=== PATIENT | female | born 1950 | race Caucasian/White ===

== ENCOUNTER → 2017-07-04 09:47 | Outpatient (CLI) | payer MEDICARE, BC, SELFPAY ==
--- NOTE | 2017-07-04 | DI.US.S_ITS ---
ULTRASOUND OF RIGHT BREAST: 07/04/2017 CLINICAL: Patient returns for a 6 month follow up of the right breast. Comparison is made to exams dated: 07/04/2017 mammogram, 12/20/2016 ultrasound, 12/16/2016 mammogram, and 12/14/2016 mammogram - [facility]. Color flow ultrasound of the right breast was performed. Rodriguez scale images of the real-time examination were reviewed. Prior mammographic finding is no longer seen right breast. IMPRESSION: NEGATIVE There is no sonographic evidence of malignancy. A 1 year screening mammogram is recommended. This exam was interpreted at Station ID: [id number]. Electronically Signed By: Zac calderon/heaven:07/04/2017 12:40:29 letter sent: Normal Exam Ultrasound BI-RADS: 1 Negative
--- NOTE | 2017-07-04 | DI.MG.S_ITS ---
UNILATERAL RIGHT DIGITAL DIAGNOSTIC MAMMOGRAM 3D/2D: 07/04/2017 CLINICAL: Patient returns for a 6 month follow up of the right breast. Personal history of breast cancer. Family history of breast cancer. Comparison is made to exams dated: 12/16/2016 mammogram, 12/14/2016 mammogram, and 07/01/2015 mammogram - Located [facility]. There are scattered fibroglandular elements in the right breast. Prior mammographic finding is no longer seen in the right breast. No significant masses, calcifications, or other findings are seen in the breast. IMPRESSION: INCOMPLETE: NEEDS ADDITIONAL IMAGING EVALUATION Questioned right breast finding has resolved. Recommend confirmation with ultrasound. This exam was interpreted at Station ID: [id number]. NOTE: For mammograms, a report in lay terms will be sent to the patient. Approximately 15% of breast malignancies will not be visualized mammographically. In the management of a palpable breast mass, a negative mammogram must not discourage biopsy of a clinically suspicious lesion. Electronically Signed By: Zac Pink M.D. cj/:07/04/2017 12:39:56 ACR BI-RADS Category 0: Incomplete [id number]
== END ==
PROVIDERS: PCP Family Medicine; Visit Provider Family Medicine
DX: R92.8 Other abnormal and inconclusive findings on diagnostic imaging of breast (principal); Z85.3 Personal history of malignant neoplasm of breast
CPT/HCPCS: 76642; 77065; G0279

== ENCOUNTER → 2018-04-12 10:46 | Outpatient (CLI) | payer MEDICARE, BC, SELFPAY ==
--- NOTE | 2018-04-12 | DI.US.S_ITS ---
PROCEDURE: US THYROID INDICATIONS: THYROID HYPERTROPHY TECHNIQUE: Real-time scanning was performed of the thyroid gland, with image documentation. COMPARISON: None. FINDINGS: Right: Thyroid lobe measures 2.3 x 2.9 x 4.8 cm, and there is no normal thyroid tissue seen bilaterally. There is a right-sided middle third nodule measuring up to 2.2 x 2.9 x 3.7 cm and appears solid, hypoechoic, smoothly marginated and free of internal calcifications. A second right mid medial thyroid nodule measures 5 x 6 x 10 mm, solid, hypoechoic, smooth, and without internal calcifications. The glandular echotexture is heterogeneous and has an appearance suggestive of superimposed prior thyroiditis. Left: Thyroid lobe measures 1.7 x 1.0 x 4.5 cm. as was seen on the right there is no normal appearing thyroid tissue bilaterally. The left inferior thyroid lobe contains a 5 x 5 x 11 mm solid nodule is hypoechoic smoothly marginated and free of internal calcifications. More superiorly within the left thyroid lobe there is a 4 x 7 x 7 mm solid hypoechoic and smoothly marginated nodule. Isthmus: 3 mm thick. Lymph nodes: No regional lymphadenopathy. IMPRESSION: The thyroid parenchyma bilaterally shows heterogeneity throughout in a pattern suggestive of prior thyroiditis and scarring. There is a dominant right thyroid nodule measuring up to 2.2 x 2.9 x 3.7 cm on the right there is good be easily and safely biopsied utilizing cytology technique if clinically desired. Elsewhere the thyroid nodules are appreciably smaller, likely benign, and could be followed by sequential ultrasound if clinically desired. Dictated by: Calvin Huerta M.D. on 04/12/2018 at 17:21 Approved by: Calvin Huerta M.D. on 04/12/2018 at 17:25
== END ==
PROVIDERS: PCP Family Medicine; Visit Provider Otolaryngology
DX: E04.9 Nontoxic goiter, unspecified (principal)
CPT/HCPCS: 76536

== ENCOUNTER → 2018-05-25 13:04 | Outpatient (CLI) | payer MEDICARE, BC, SELFPAY ==
--- NOTE | 2018-05-25 | DI.MG.S_ITS ---
BILATERAL DIGITAL SCREENING MAMMOGRAM 3D/2D WITH CAD POST LUMPECTOMY: 05/25/2018 CLINICAL: Routine screening. Personal history of left breast cancer. Family history of breast cancer. Comparison is made to exams dated: 12/14/2016 mammogram, 07/01/2015 mammogram, and 03/06/2014 mammogram - [facility]. There are scattered fibroglandular elements in both breasts. Current study was also evaluated with a Computer Aided Detection (CAD) system. There are benign post operative findings in both breasts. There also are benign calcifications in the left breast. No significant masses, calcifications, or other findings are seen in either breast. There has been no significant interval change. IMPRESSION: There is no mammographic evidence of malignancy. A 1 year screening mammogram is recommended. This exam was interpreted at Station ID: [id number]. NOTE: For mammograms, a report in lay terms will be sent to the patient. Approximately 15% of breast malignancies will not be visualized mammographically. In the management of a palpable breast mass, a negative mammogram must not discourage biopsy of a clinically suspicious lesion. Electronically Signed By: Quinn chen/heaven:05/25/2018 14:18:58 letter sent: Normal Exam ACR BI-RADS Category 2: Benign Finding(s) 3342F
== END ==
PROVIDERS: PCP Family Medicine; Visit Provider Family Medicine
DX: Z12.31 Encounter for screening mammogram for malignant neoplasm of breast (principal); Z85.3 Personal history of malignant neoplasm of breast; Z80.3 Family history of malignant neoplasm of breast
CPT/HCPCS: 77063; 77067

== ENCOUNTER → 2018-09-19 12:10 | Outpatient (CLI) | payer MEDICARE, BC, SELFPAY ==
--- NOTE | 2018-09-19 | DI.US.S_ITS ---
PROCEDURE: US THYROID INDICATIONS: Nontoxic multinodular goiter TECHNIQUE: Real-time scanning was performed of the thyroid gland, with image documentation. COMPARISON: [facility], US, US THYROID, 04/12/2018, 11:10. FINDINGS: Thyroid gland is enlarged and demonstrates diffusely heterogeneous echotexture. Right: Thyroid lobe measures 5.0 x 3.1 x 2.4 cm. Left: Thyroid lobe measures 4.6 x 1.8 x 1.6 cm. Isthmus: 4 mm thick. Nodule number: 1 Location: Mid right thyroid lobe Size: 3.9 x 2.8 x 2.2 cm, unchanged since the last time. Composition: Solid Echogenicity: Hypoechoic Shape: wider than tall. Margins: The most Echogenic foci: No Total points: 4 ACR TI-RADS category: 4 Nodule number: 2 Location: Medial upper right thyroid lobe Size: 1.0 x 0.5 x 0.5cm, unchanged since the last exam Composition: Solid Echogenicity: Hypoechoic Shape: wider than tall. Margins: Smooth Echogenic foci: None Total points: 4 ACR TI-RADS category: 4 Nodule number: 3 Location: Inferior right thyroid lobe Size: 1.0 x 0.9 x 0.5 cm. Composition: Solid Echogenicity: Hypoechoic Shape: wider than tall. Margins: Smooth Echogenic foci: None Total points: 4 ACR TI-RADS category: 4 Nodule number: 4 Location: Mid lateral thyroid lobe Size: 1.0 x 0.7 x 0.5 cm, cm, unchanged in size since last exam. Composition: Solid Echogenicity: Hypoechoic Shape: wider than tall. Margins: Smooth Echogenic foci: None Total points: 4 ACR TI-RADS category: 4 Nodule number: 5 Location: Mid medial left thyroid lobe Size: 0.7 x 0.6 x 0.4 cm, unchanged in size since last exam. Composition: Solid Echogenicity: Hypoechoic Shape: wider than tall. Margins: Smooth Echogenic foci: None Total points: 4 ACR TI-RADS category: 4 IMPRESSION: 1. Enlarged, heterogeneous echotexture of thyroid gland compatible with chronic thyroiditis. 2. Multiple thyroid nodules as described. Biopsy should be considered for nodule #1. Other nodules can be followed sonographically. Please see enclosed followup recommendation. ACR TI-RADS definitions and recommendations: TI-RADS 1 (benign): 0 points. FNA not needed. TI-RADS 2 (not suspicious): 2 points. FNA not needed. TI-RADS 3 (mildly suspicious): 3 points. * FNA if 2.5 cm or larger, follow up if 1.5 cm or larger (at 1, 3, and 5 years). TI-RADS 4 (moderately suspicious): 4-6 points. * FNA if 1.5 cm or larger, follow up if 1 cm or larger (at 1, 2, 3, and 5 years). TI-RADS 5 (highly suspicious): 7 points or more. * FNA if 1 cm or larger, follow up if 0.5 cm or larger (every year for 5 years). Dictated by: Elida Calderon M.D. on 09/19/2018 at 14:15 Approved by: Elida Calderon M.D. on 09/19/2018 at 14:26
== END ==
PROVIDERS: PCP Family Medicine; Visit Provider Otolaryngology
DX: R59.9 Enlarged lymph nodes, unspecified (principal); E04.2 Nontoxic multinodular goiter; D49.7 Neoplasm of unspecified behavior of endocrine glands and other parts of nervous system
CPT/HCPCS: 76536

== ENCOUNTER → 2018-11-09 09:47 | Outpatient (CLI) | payer MEDICARE, BC, SELFPAY ==
--- NOTE | 2018-11-09 | DI.US.S_ITS ---
PROCEDURE: US FINE NEEDLE ASPIRATION INDICATIONS: RIGHT LOBE MASS TECHNIQUE: The indications, alternatives, benefits, risks, and complications of the procedure were explained to the patient. Written informed consent was obtained and placed in the chart. The thyroid region was examined sonographically and a site was chosen for ultrasound guided percutaneous sampling. The skin was prepared and draped in the usual fashion, and anesthetized with 1% lidocaine infiltrated from the skin down to the thyroid gland. Multiple passes were then performed, with the needles given to a technical service representative of the pathology department for appropriate handling. A bandage was applied to the area of access at completion of the study. COMPARISON: [facility], US, US THYROID, 09/19/2018, 12:33. FINDINGS: Location(s) of lesion(s) sampled: Right thyroid Hollister: 25 gauge hypodermic needles. Number of passes: 6 samples obtained Medications: 1% lidocaine for local anaesthesia. Complications: None. IMPRESSION: Successful ultrasound-guided thyroid nodule fine needle aspiration, with cytology results pending. Please see chart below for management recommendations based on cytology results. [facility] ReportingRecommendationsNon-diagnostic* Repeat US-guided FNA, with on-site cytology evaluation if possible. * Repeated non-diagnostic nodules without high suspicion US features: close observation vs surgical consult. * Consider surgery if nodule has high suspicion US features, grows >20% in 2 dimensions on followup, or patient has clinical risk factors for malignancy. Benign* If nodule has high suspicion US features: repeat US and FNA within 12 months. * If nodule has low to intermediate suspicion US features: repeat US at 12-24 months. If nodule grows (20% increase in at least 2 dimensions, with minimal increase of 2 mm or >50% change in volume), or development of new suspicious US features, then repeat FNA or continue followup. * If nodule has very low suspicion US features: followup US at >24 months. Atypia of undetermined significance, follicular lesion of undetermined significanceRepeat FNA, molecular testing, followup US, or surgical consult.Follicular neoplasm, suspicious for follicular neoplasmSurgical consult; also consider molecular testing. Suspicious for malignancySurgical consult.MalignantSurgical consult. Dictated by: Chan Centeno M.D. on 11/09/2018 at 13:04 Approved by: Chan Centeno M.D. on 11/09/2018 at 13:05
--- NOTE | 2018-11-09 | PATH_ITS ---
Note [facility] Accession Number: [id number] TESTS RESULT FLAG UNITS REF RANGE LAB Clinician Provided Cytology Information No. of containers..01 ThinPrep Vial No. of containers..10 Previously Prepared Cytology Slide RIGHT THYROID NODULE DIAGNOSIS: 02 RIGHT THYROID NODULE INCONCLUSIVE. B[place]ESDA CATEGORY III. ATYPIA OF UNDETERMINED SIGNIFICANCE. SOME FOLLICULAR EPITHELIAL CELLS SHOW FOCAL CYTOLOGIC AND ARCHITECTURAL ATYPIA (MICROFOLLICLES). A REPEAT ASPIRATE AFTER AN APPROPRIATE INTERVAL OF OBSERVATION MIGHT BE HELPFUL, IF CLINICALLY INDICATED. Pathologist ICD10: 02 R89.6 THYROID ULTRA SOUND 04/12 SHOWING MULTINODULAR GOITER BUT LARGEST RIGHT MID POLE SOLID LESION 3.7 CM,SMOOTH MARGINS AND NO INTERNAL CALCIFICATION. 02 Nuvia Espinosa MD, Pathologist NPI- [id number] Eamon Skinner, Head Coach ([facility]) 01 30 CC, RED, CLEAR RECEIVED: 5 ALCOHOL FIXED AND 5 QUICK STAINED SLIDES WITH 1 RNA VIAL FOR FURTHER TESTING. /VDU 11/10/2018 0914 Local FLAG LEGEND: L-Low Normal,H-High Normal,LL-Alert Low,HH-Alert High <-Panic Low,>-Panic High,A-Abnormal,AA-Critical Abnormal Performed at: 01 =Z [facility] [address] [address], [place] [address] Santos Calhoun MD, [address] [facility] [address] [place] [phone] Adore Sanabria MD, Performed at: [address] [facility] [address], [place], [place] [id number] MD Santos Calhoun MD Phone: [phone]
== END ==
PROVIDERS: PCP Family Medicine; Visit Provider Otolaryngology
DX: E04.2 Nontoxic multinodular goiter (principal)
CPT/HCPCS: 10005

== ENCOUNTER 2018-12-06 11:48 | Emergency (ER) | payer MEDICARE, BC, SELFPAY ==
[2018-12-06] VITALS (8 sets, daily range): BP systolic 147–170; BP diastolic 58–70; PULSE 98–123; RESP 15–25; TEMP 37.6–38.3; O2SAT 97
--- NOTE | 2018-12-06 12:05 | DI.RAD.S_ITS ---
PROCEDURE: XR CHEST 1V INDICATIONS: fever TECHNIQUE: One view of the chest was acquired. COMPARISON: None. FINDINGS: Surgical changes and devices: Left breast clips Lungs and pleura: Lungs are clear. No pleural effusions or pneumothorax. Mediastinum: Mediastinal contours appear normal. Heart size is normal. Bones and chest wall: No suspicious bony lesions. Overlying soft tissues appear unremarkable. IMPRESSION: No evidence acute pulmonary process. Dictated by: Dhiraj Clarke M.D. on 12/06/2018 at 12:23 Approved by: Dhiraj Clarke M.D. on 12/06/2018 at 12:24
--- NOTE | 2018-12-06 12:17 | ED.FEVER ---
HPI - Fever <Frank PIPER Licea - Last Filed: 12/06/18 21:07> General Chief Complaint: Fever Stated Complaint: both lower leg cellulitis/both wrists pain/n&v9day Time Seen by Provider: 12/06/18 11:55 Source: patient and family Mode of arrival: Wheelchair Limitations: no limitations History of Present Illness HPI Narrative: This is a 68-year-old female, nonsmoker, who presents with significant other with chief complain of bilateral wrist, knee, anterior aspect of ankle pain and fever. Patient reports onset of sore throat and low-grade fever started about 10 days ago. Next morning she woke up with body aches and joints pain. The pain was severe that she needed assistance from her to sit up. Then she had experienced nausea and vomiting x3. She called her doctor's office and advised to go to ER if she has been having nausea and vomiting for several days. However, she waited over the weekend and she was able to tolerate fluids. 2 days ago, the patient noticed redness and swelling on lower extremity which was worse on the right lower leg. She was able to seen by her primary care physician Dr. Power yesterday and was prescribed with Keflex 500 mg Q 6 hours for cellulitis which she had started at noon yesterday. She is here for an evaluation for septic joint after she talked to her friend who is in medical field. Related Data Home Medications Medication Instructions Recorded Confirmed olmesartan [Benicar] 20 mg PO QPM #0 04/16/16 12/06/18 Calcium Magnesium 1 tab PO DAILY 12/06/18 12/06/18 amlodipine 5 mg PO QPM 12/06/18 12/06/18 carisoprodol [Soma] 350 mg PO Q4-6H PRN 12/06/18 12/06/18 cephalexin [Keflex] 500 mg PO Q12H 12/06/18 12/06/18 cholecalciferol (vitamin D3) 2,000 unit PO DAILY 12/06/18 12/06/18 [Vitamin D3] cyanocobalamin (vitamin B-12) 2,500 mcg PO DAILY 12/06/18 12/06/18 [Vitamin B-12] hydrocodone-acetaminophen 1 tab PO Q4-6H PRN 12/06/18 12/06/18 meclizine 25 mg PO PRN PRN 12/06/18 12/06/18 meloxicam [Mobic] 15 mg PO DAILY 12/06/18 12/06/18 multivitamin 1 tab PO DAILY 12/06/18 12/06/18 Allergies Allergy/AdvReac Type Severity Reaction Status Date / Time morphine [MORPHINE] Allergy Unknown Verified 12/06/18 12:04 Review of Systems <PIPER Archibald - Last Filed: 12/06/18 21:07> Review of Systems Narrative: General: See HPI HEENT: Reports had sore throat last week. Denies sinus pain, ear pain, difficulty swallowing, dizziness. Respiratory: Denies dyspnea, cough, wheezing, hemoptysis, sputum. Cardiovascular: Denies chest pain, palpitations, orthopnea, edema. Gastrointestinal: See HPI : Reports urinary frequency. Denies dysuria, incontinence, hematuria, urinary retention. Musculoskeletal: See HPI. Skin: See HPI Neurologic: Denies weakness, headache, numbness, change in speech, confusion, seizures, incoordination. Psychiatric: No concerning psychosocial issues. 12-point review of systems is negative except for those stated above. Patient History <PIPER Archibald - Last Filed: 12/06/18 21:07> Medical History History of breast cancer (Acute) Surgical History Status post appendectomy Status post bilateral salpingo-oophorectomy (BSO) Status post hysterectomy Status post knee surgery Status post knee surgery Status post tubal ligation Social History Smoking Status: Never smoker Social History Smoking Status: Never smoker alcohol intake frequency: 0-2 drinks per day Substance Use Type: does not use Exam <PIPER Archibald - Last Filed: 12/06/18 21:07> Narrative Exam Narrative: GEN: Alert, oriented x 3, well nourished, and in moderate distress. Head: Normal cephalic, atraumatic. No scalp or temporal tenderness, palpable mass or rash. EYES: Pupils are equal, round, and reactive to light and accommodation. Extraocular muscles are intact bilaterally. There is no subconjunctival hemorrhage, exudate and sclera non-icteric. ENT: Bilateral auditory canals and tympanic membranes clear. Hearing grossly intact. Nose without bleeding, purulent discharge or deviation. Facial sinuses nontender to palpate. Mucous membrane moist, no mucosal lesion. Throat without erythema, tonsillar hypertrophy or exudate. Uvula in midline, airway patent. Neck: Trachea in midline. No JVD, non-tender without lymphadenopathy. No masses or thyroid megaly. Supple, non-tender and no meningeal signs. CARDIAC: Normal regular rate and rhythm without murmurs, gallops, or rubs. No chest wall tenderness. No peripheral edema, cyanosis or pallor. Capillary refill is less than 2 seconds. RESPIRATORY: Lungs are cleat to auscultate bilaterally. No cough, wheezes, rales, or rhonchi. No stridor, respiratory distress, increase work of breathing, or accessary muscle used. ABD: Abdomen soft, nontender and non-distended. No guarding or rebound tenderness to palpate. Bowel sounds are normal in all 4 quadrants. There is no palpable masses or organomegaly. EXT: Significant bilateral wrist discomfort with light movement. Moderate edema to bilateral hands without erythema. No bilateral knee erythema, edema. No bilateral calf discomfort per palpation or edema. SKIN: Mild diffused erythema on L anterior lower extremity and hot to touch. Noted small superficial abrasion on right anterior ankle. Hot, dry, normal color for patient. No erythema, lesions or rash over other visible areas. BACK: Nontender without deformity or crepitance. No flank tenderness. NEUROLOGICAL: Alert and oriented to place, time and person. Sensation and motor function intact bilaterally. No facial droops, dysphasia. PSYCHIATRIC: Good judgement and reason, without hallucinations, abnormal affect or abnormal behaviors during the examination. Initial Vital Signs Initial Vital Signs: Vital Signs Pulse Rate 123 H 12/06/18 11:50 Respiratory Rate 25 H 12/06/18 11:50 Pulse Oximetry 97 12/06/18 11:50 <Nuvia Montenegro MD - Last Filed: 12/07/18 07:52> Initial Vital Signs Initial Vital Signs: Vital Signs Pulse Rate 123 H 12/06/18 11:50 Respiratory Rate 25 H 12/06/18 11:50 Pulse Oximetry 97 10/16/19 11:50 Course <PIPER Archibald - Last Filed: 12/06/18 21:07> Orders Ordered: Discontinued Medications Acetaminophen (Tylenol) 975 mg PO NOW ONE Stop: 12/06/18 12:17 Last Admin: 12/06/18 12:44 Dose: 975 mg Documented by: KE Sodium Chloride (Normal Saline 0.9%) 2,475 mls @ 825 mls/hr 30 ml/kg infuse over 3 hr (2475 ml) IV NOW ONE Stop: 12/06/18 15:04 Last Infusion: 12/06/18 15:02 Dose: 0 mls/hr Documented by: Admin: 12/06/18 12:44 Dose: 825 mls/hr Documented by: KE Ketorolac Tromethamine (Toradol) 30 mg IV NOW ONE Stop: 12/06/18 12:17 Last Admin: 12/06/18 12:44 Dose: 30 mg Documented by: KE Consultations Consultation #1: [facility] Time: 14:15 Vital Signs Vital signs: Vital Signs - 8 hr 12/06/18 13:31 12/06/18 13:46 12/06/18 14:51 Temperature 99.7 F H 99.7 F H Pulse Rate 104 H 98 H Respiratory Rate 16 16 Blood Pressure [Right Arm] 147/58 H Pulse Oximetry 97 97 12/06/18 14:54 Temperature Pulse Rate Respiratory Rate Blood Pressure [Right Arm] 147/58 H Pulse Oximetry <Nuvia Montenegro MD - Last Filed: 12/07/18 07:52> Orders Ordered: Discontinued Medications Acetaminophen (Tylenol) 975 mg PO NOW ONE Stop: 12/06/18 12:17 Last Admin: 12/06/18 12:44 Dose: 975 mg Documented by: KE Sodium Chloride (Normal Saline 0.9%) 2,475 mls @ 825 mls/hr 30 ml/kg infuse over 3 hr (2475 ml) IV NOW ONE Stop: 12/06/18 15:04 Last Infusion: 12/06/18 15:02 Dose: 0 mls/hr Documented by: Admin: 12/06/18 12:44 Dose: 825 mls/hr Documented by: KE Ketorolac Tromethamine (Toradol) 30 mg IV NOW ONE Stop: 12/06/18 12:17 Last Admin: 12/06/18 12:44 Dose: 30 mg Documented by: KE Vital Signs Vital signs: Vital Signs - 8 hr 12/06/18 13:31 12/06/18 13:46 12/06/18 14:51 Temperature 99.7 F H 99.7 F H Pulse Rate 104 H 98 H Respiratory Rate 16 16 Blood Pressure [Right Arm] 147/58 H Pulse Oximetry 97 97 12/06/18 14:54 Temperature Pulse Rate Respiratory Rate Blood Pressure [Right Arm] 147/58 H Pulse Oximetry MDM - Fever <Frank PIPER Licea - Last Filed: 12/06/18 21:07> Differential Diagnosis Differential diagnosis: Likely cellulitis and other (Adult Still's disease, arthritis, arthralgia, myalgia, acute viral symdrome, UTI) Medical Records Attestation: I reviewed the patient's medical records. Lab Data Attestation: I reviewed the patient's lab results. Result diagrams: 12/06/18 12:14 12/06/18 12:14 Labs: Lab Results 12/06/18 12/06/18 12/06/18 Range/Units 12:14 12:14 12:14 WBC 16.9 H (4.5-11.0) X10^3/uL RBC 4.19 (4.0-5.2) X10^6/uL Hgb 11.6 L (12.0-16.0) g/dL Hct 35.3 L (36-46) % MCV 84.1 (80-100) fL MCH 27.8 (26-34) PG MCHC 33.0 (30-36) % RDW 13.7 (11.6-14.8) % Plt Count 507 H (150-400) X10^3/uL Neut % (Auto) 83.1 H (50-75) % Lymph % (Auto) 9.4 L (25-40) % [place] % (Auto) 6.6 (3-14) % Eos % (Auto) 0.5 L (2-4) % Baso % (Auto) 0.4 (0-2) % Neut # (Auto) 07145 H (8575-3112) /uL Lymph # (Auto) 1600 (2997-8748) /uL [place] # (Auto) 1100 H (0-900) /uL Eos # (Auto) 100 (0-450) /uL Baso # (Auto) 100 (0-100) /uL ESR 110 H (0-20) MM/HR PT 14.3 H (10.1-12.7) SECONDS INR 1.2 (0.9-1.3) APTT 40 H (26.4-36.2) SECONDS Sodium (137-145) mmol/L Potassium (3.4-5.1) mmol/L Chloride (98-107) mmol/L Carbon Dioxide (22-32) mmol/L BUN (7-17) mg/dL Creatinine (0.52-1.04) mg/dL Estimated GFR (>60) mL/min BUN/Creatinine Ratio (6-22) Glucose (80-110) mg/dL Lactate (0.7-2.1) mmol/L Calcium (8.4-10.2) mg/dL Total Bilirubin (0.2-1.3) mg/dL AST (14-36) IU/L ALT (9-52) IU/L Alkaline Phosphatase (38-126) U/L C-Reactive Protein (<1.0) mg/dL Total Protein (6.3-8.2) g/dL Albumin (3.5-5.0) g/dL Globulin (1.7-4.1) g/dL Albumin/Globulin Ratio (1.0-2.8) Procalcitonin 0.11 (<0.5) ng/mL Urine RBC (0-5/HPF) Urine WBC (0-5/HPF) Ur Squamous Epith Cells (0-5/HPF) Urine Bacteria (None) Urine Mucus (Negative) Ur Culture Indicated? Influenza A & B (PCR) (Negative) 12/06/18 12/06/18 12/06/18 Range/Units 12:14 12:14 12:14 WBC (4.5-11.0) X10^3/uL RBC (4.0-5.2) X10^6/uL Hgb (12.0-16.0) g/dL Hct (36-46) % MCV (80-100) fL MCH (26-34) PG MCHC (30-36) % RDW (11.6-14.8) % Plt Count (150-400) X10^3/uL Neut % (Auto) (50-75) % Lymph % (Auto) (25-40) % [place] % (Auto) (3-14) % Eos % (Auto) (2-4) % Baso % (Auto) (0-2) % Neut # (Auto) (3710-4783) /uL Lymph # (Auto) (6676-3882) /uL [place] # (Auto) (0-900) /uL Eos # (Auto) (0-450) /uL Baso # (Auto) (0-100) /uL ESR (0-20) MM/HR PT (10.1-12.7) SECONDS INR (0.9-1.3) APTT (26.4-36.2) SECONDS Sodium 136 L (137-145) mmol/L Potassium 3.9 (3.4-5.1) mmol/L Chloride 101 (98-107) mmol/L Carbon Dioxide 26 (22-32) mmol/L BUN 13 (7-17) mg/dL Creatinine 0.70 (0.52-1.04) mg/dL Estimated GFR > 60.0 (>60) mL/min BUN/Creatinine Ratio 18.6 (6-22) Glucose 191 H (80-110) mg/dL Lactate 1.6 (0.7-2.1) mmol/L Calcium 9.0 (8.4-10.2) mg/dL Total Bilirubin 0.4 (0.2-1.3) mg/dL AST 56 H (14-36) IU/L ALT 109 H (9-52) IU/L Alkaline Phosphatase 115 (38-126) U/L C-Reactive Protein 7.5 H (<1.0) mg/dL Total Protein 7.3 (6.3-8.2) g/dL Albumin 3.7 (3.5-5.0) g/dL Globulin 3.6 (1.7-4.1) g/dL Albumin/Globulin Ratio 1.0 (1.0-2.8) Procalcitonin (<0.5) ng/mL Urine RBC (0-5/HPF) Urine WBC (0-5/HPF) Ur Squamous Epith Cells (0-5/HPF) Urine Bacteria (None) Urine Mucus (Negative) Ur Culture Indicated? Influenza A & B (PCR) Negative (Negative) 12/06/18 Range/Units 12:47 WBC (4.5-11.0) X10^3/uL RBC (4.0-5.2) X10^6/uL Hgb (12.0-16.0) g/dL Hct (36-46) % MCV (80-100) fL MCH (26-34) PG MCHC (30-36) % RDW (11.6-14.8) % Plt Count (150-400) X10^3/uL Neut % (Auto) (50-75) % Lymph % (Auto) (25-40) % [place] % (Auto) (3-14) % Eos % (Auto) (2-4) % Baso % (Auto) (0-2) % Neut # (Auto) (4615-5949) /uL Lymph # (Auto) (7153-6218) /uL [place] # (Auto) (0-900) /uL Eos # (Auto) (0-450) /uL Baso # (Auto) (0-100) /uL ESR (0-20) MM/HR PT (10.1-12.7) SECONDS INR (0.9-1.3) APTT (26.4-36.2) SECONDS Sodium (137-145) mmol/L Potassium (3.4-5.1) mmol/L Chloride (98-107) mmol/L Carbon Dioxide (22-32) mmol/L BUN (7-17) mg/dL Creatinine (0.52-1.04) mg/dL Estimated GFR (>60) mL/min BUN/Creatinine Ratio (6-22) Glucose (80-110) mg/dL Lactate (0.7-2.1) mmol/L Calcium (8.4-10.2) mg/dL Total Bilirubin (0.2-1.3) mg/dL AST (14-36) IU/L ALT (9-52) IU/L Alkaline Phosphatase (38-126) U/L C-Reactive Protein (<1.0) mg/dL Total Protein (6.3-8.2) g/dL Albumin (3.5-5.0) g/dL Globulin (1.7-4.1) g/dL Albumin/Globulin Ratio (1.0-2.8) Procalcitonin (<0.5) ng/mL Urine RBC 0-1/hpf (0-5/HPF) Urine WBC 30-100/hpf H (0-5/HPF) Ur Squamous Epith Cells 0-1 /hpf (0-5/HPF) Urine Bacteria Moderate (10-30) H (None) Urine Mucus 2+ H (Negative) Ur Culture Indicated? Specimen cultured Influenza A & B (PCR) (Negative) Urine Dip Bedside Urine Glucose Negative Bedside Urine Bilirubin - Negative Bedside Urine Ketone - Negative Urine Specific [place] 1.020 Bedside Urine Occult Blood +/- Bedside Urine pH 6.0 Bedside Urine Protein - Negative Bedside Urine Urobilinogen - Negative Bedside Urine Nitrite - Negative Bedside Urine Leukocytes +++ 500 Esterase Imaging Data Chest x-ray: Radiologist's impression: [address] [address] XRay Report Signed Patient: Genoveva Roberts EMR#: [id number] : 1Acct:[id number] Age/Sex: 68 / FDate of Service: 12/06/18 Loc: ED Accession Number: [id number] Procedure: XR chest 1V Ordering Provider: Frank Licea PROCEDURE: XR CHEST 1V INDICATIONS: fever TECHNIQUE: One view of the chest was acquired. COMPARISON: None. FINDINGS: Surgical changes and devices: Left breast clips Lungs and pleura: Lungs are clear. No pleural effusions or pneumothorax. Mediastinum: Mediastinal contours appear normal. Heart size is normal. Bones and chest wall: No suspicious bony lesions. Overlying soft tissues appear unremarkable. IMPRESSION: No evidence acute pulmonary process. Dictated by: Dhiraj Clarke M.D. on 12/06/2018 at 12:23 Approved by: Dhiraj Clarke M.D. on 12/06/2018 at 12:24 [facility] Narrative Medical decision making narrative: This is a 68-year-old female who presents to ED with acute discomfort and swelling in bilateral wrist, discomfort in knees, and ankle for last several days. Patient reports it started with sore throat and low-grade fever about 10 days ago which proceeded to arthralgia and myalgia the following day. Patient also had nausea and vomiting x3 last week. Patient is being treated with Keflex 500 mg Q 6 hours by PCP for cellulitis on her right lower leg since yesterday with very mild redness, swelling, pain. Patient presents to ED today for ongoing fever and discomforts and swelling in joints. Due to her tachycardia, fever, and being treated for cellulitis, septic workup has started. Patient was medicated with Tylenol and IV toward our with normal saline hydration. White count was elevated up to 16.9 with neutrophil 140,000. ESR and CRP were both elevated as 110 and 7.5. AST and ALT were both elevated as 56 and 109. Lactate and procalcitonin were both unremarkable. Chest x-ray showed no acute findings. Flu swab was negative. Platelet count was mildly elevated. Patient reports pain had improved after she was medicated. Urine sample was obtained and showed 3+ leukocytes, moderate urine bacteria and WBC and it is being cultured at this time. Patient was evaluated several times while in ED. The [employer] Dr. Calderon at [facility] was consulted. Hepatitis panel was added as this was suggested by Dr. Calderon and steroids were not suggested at this time due to possible infection. Patient advised to continue and complete a course of the current antibiotic medication Keflex for possible cellulitis and UTI and advised to follow up with PCP with close return precautions and a referral to gis software engineer to follow up. Patient's heart rate and temperature had improved as well and was able to tolerate snacks and fluids without nausea or vomiting. I discussed findings with patient as well as the discussion with Dr. Canchola. Patient agrees with treatment plan and all questions were answered prior to discharge to home. Hepatitis panel is pending at this time. <Nuvia Montenegro MD - Last Filed: 12/07/18 07:52> Lab Data Labs: Lab Results 12/06/18 12/06/18 12/06/18 Range/Units 12:14 12:14 12:14 WBC 16.9 H (4.5-11.0) X10^3/uL RBC 4.19 (4.0-5.2) X10^6/uL Hgb 11.6 L (12.0-16.0) g/dL Hct 35.3 L (36-46) % MCV 84.1 (80-100) fL MCH 27.8 (26-34) PG MCHC 33.0 (30-36) % RDW 13.7 (11.6-14.8) % Plt Count 507 H (150-400) X10^3/uL Neut % (Auto) 83.1 H (50-75) % Lymph % (Auto) 9.4 L (25-40) % [place] % (Auto) 6.6 (3-14) % Eos % (Auto) 0.5 L (2-4) % Baso % (Auto) 0.4 (0-2) % Neut # (Auto) 50279 H (4259-1515) /uL Lymph # (Auto) 1600 (0581-8408) /uL [place] # (Auto) 1100 H (0-900) /uL Eos # (Auto) 100 (0-450) /uL Baso # (Auto) 100 (0-100) /uL ESR 110 H (0-20) MM/HR PT 14.3 H (10.1-12.7) SECONDS INR 1.2 (0.9-1.3) APTT 40 H (26.4-36.2) SECONDS Sodium (137-145) mmol/L Potassium (3.4-5.1) mmol/L Chloride (98-107) mmol/L Carbon Dioxide (22-32) mmol/L BUN (7-17) mg/dL Creatinine (0.52-1.04) mg/dL Estimated GFR (>60) mL/min BUN/Creatinine Ratio (6-22) Glucose (80-110) mg/dL Lactate (0.7-2.1) mmol/L Calcium (8.4-10.2) mg/dL Total Bilirubin (0.2-1.3) mg/dL AST (14-36) IU/L ALT (9-52) IU/L Alkaline Phosphatase (38-126) U/L C-Reactive Protein (<1.0) mg/dL Total Protein (6.3-8.2) g/dL Albumin (3.5-5.0) g/dL Globulin (1.7-4.1) g/dL Albumin/Globulin Ratio (1.0-2.8) Procalcitonin 0.11 (<0.5) ng/mL Urine RBC (0-5/HPF) Urine WBC (0-5/HPF) Ur Squamous Epith Cells (0-5/HPF) Urine Bacteria (None) Urine Mucus (Negative) Ur Culture Indicated? Influenza A & B (PCR) (Negative) 12/06/18 12/06/18 12/06/18 Range/Units 12:14 12:14 12:14 WBC (4.5-11.0) X10^3/uL RBC (4.0-5.2) X10^6/uL Hgb (12.0-16.0) g/dL Hct (36-46) % MCV (80-100) fL MCH (26-34) PG MCHC (30-36) % RDW (11.6-14.8) % Plt Count (150-400) X10^3/uL Neut % (Auto) (50-75) % Lymph % (Auto) (25-40) % [place] % (Auto) (3-14) % Eos % (Auto) (2-4) % Baso % (Auto) (0-2) % Neut # (Auto) (7010-4640) /uL Lymph # (Auto) (6017-5189) /uL [place] # (Auto) (0-900) /uL Eos # (Auto) (0-450) /uL Baso # (Auto) (0-100) /uL ESR (0-20) MM/HR PT (10.1-12.7) SECONDS INR (0.9-1.3) APTT (26.4-36.2) SECONDS Sodium 136 L (137-145) mmol/L Potassium 3.9 (3.4-5.1) mmol/L Chloride 101 (98-107) mmol/L Carbon Dioxide 26 (22-32) mmol/L BUN 13 (7-17) mg/dL Creatinine 0.70 (0.52-1.04) mg/dL Estimated GFR > 60.0 (>60) mL/min BUN/Creatinine Ratio 18.6 (6-22) Glucose 191 H (80-110) mg/dL Lactate 1.6 (0.7-2.1) mmol/L Calcium 9.0 (8.4-10.2) mg/dL Total Bilirubin 0.4 (0.2-1.3) mg/dL AST 56 H (14-36) IU/L ALT 109 H (9-52) IU/L Alkaline Phosphatase 115 (38-126) U/L C-Reactive Protein 7.5 H (<1.0) mg/dL Total Protein 7.3 (6.3-8.2) g/dL Albumin 3.7 (3.5-5.0) g/dL Globulin 3.6 (1.7-4.1) g/dL Albumin/Globulin Ratio 1.0 (1.0-2.8) Procalcitonin (<0.5) ng/mL Urine RBC (0-5/HPF) Urine WBC (0-5/HPF) Ur Squamous Epith Cells (0-5/HPF) Urine Bacteria (None) Urine Mucus (Negative) Ur Culture Indicated? Influenza A & B (PCR) Negative (Negative) 12/06/18 Range/Units 12:47 WBC (4.5-11.0) X10^3/uL RBC (4.0-5.2) X10^6/uL Hgb (12.0-16.0) g/dL Hct (36-46) % MCV (80-100) fL MCH (26-34) PG MCHC (30-36) % RDW (11.6-14.8) % Plt Count (150-400) X10^3/uL Neut % (Auto) (50-75) % Lymph % (Auto) (25-40) % [place] % (Auto) (3-14) % Eos % (Auto) (2-4) % Baso % (Auto) (0-2) % Neut # (Auto) (8843-4922) /uL Lymph # (Auto) (4299-4032) /uL [place] # (Auto) (0-900) /uL Eos # (Auto) (0-450) /uL Baso # (Auto) (0-100) /uL ESR (0-20) MM/HR PT (10.1-12.7) SECONDS INR (0.9-1.3) APTT (26.4-36.2) SECONDS Sodium (137-145) mmol/L Potassium (3.4-5.1) mmol/L Chloride (98-107) mmol/L Carbon Dioxide (22-32) mmol/L BUN (7-17) mg/dL Creatinine (0.52-1.04) mg/dL Estimated GFR (>60) mL/min BUN/Creatinine Ratio (6-22) Glucose (80-110) mg/dL Lactate (0.7-2.1) mmol/L Calcium (8.4-10.2) mg/dL Total Bilirubin (0.2-1.3) mg/dL AST (14-36) IU/L ALT (9-52) IU/L Alkaline Phosphatase (38-126) U/L C-Reactive Protein (<1.0) mg/dL Total Protein (6.3-8.2) g/dL Albumin (3.5-5.0) g/dL Globulin (1.7-4.1) g/dL Albumin/Globulin Ratio (1.0-2.8) Procalcitonin (<0.5) ng/mL Urine RBC 0-1/hpf (0-5/HPF) Urine WBC 30-100/hpf H (0-5/HPF) Ur Squamous Epith Cells 0-1 /hpf (0-5/HPF) Urine Bacteria Moderate (10-30) H (None) Urine Mucus 2+ H (Negative) Ur Culture Indicated? Specimen cultured Influenza A & B (PCR) (Negative) Urine Dip Bedside Urine Glucose Negative Bedside Urine Bilirubin - Negative Bedside Urine Ketone - Negative Urine Specific [place] 1.020 Bedside Urine Occult Blood +/- Bedside Urine pH 6.0 Bedside Urine Protein - Negative Bedside Urine Urobilinogen - Negative Bedside Urine Nitrite - Negative Bedside Urine Leukocytes +++ 500 Esterase Discharge Plan Departure Patient Disposition: Home Clinical Impression: Wrist arthralgia Qualifiers: Laterality: bilateral Qualified Code(s): M25.531 - Pain in right wrist Fever Qualifiers: Fever type: unspecified Qualified Code(s): R50.9 - Fever, unspecified Discharge Date/Time: 12/06/18 15:30 Instructions: DI for Arthralgia, DI for Fever (Symptom) -- Adult Activity Restrictions/Additional Instructions: You have been diagnosed with [fever, joint pain in wrists, knees, ankles, possible UTI and cellulitis. The flu test was negative. Chest x-ray was unremarkable. The markers for inflammations, infection, liver function test were elevated. However, severe bacterial infection and sepsis markers were unremarkable. Your urine sample is being cultured at this time. I added hepatitis panel but do not have results for this at this time. I spoke with at [facility] to consult]. What to do: *Take your medications as directed. Please continue to take Keflex as scheduled until you complete this course to cover skin infection and UTI. You can take [id number] Tylenol and Ibuprofen as needed for fever and discomfort. You can take Tylenol up to 4000 mg/24 hour period and Ibuprofen 400-600 mg 3-4 times a day with food. Please increase hydration. *Follow up with your primary care provider in 2-3 days, call for an appointment. Let them know you were seen in the ED and that we asked you to be seen in follow up. A referral to gis software engineer is highly recommended. *Return to ED if you have any new, worsening, or concerning symptoms, such as [increasing pain, fever not controlled with Tylenol and or Motrin, feeling like fainting, chest pain, breathing difficulty, or any acute concerns]. Prescriptions: No Action olmesartan [Benicar] 20 MG tablet 20 mg PO QPM Qty: 0 RF: 0 cephalexin [Keflex] 500 mg Capsule 500 mg PO Q12H RF: 0 amlodipine 5 mg Tablet 5 mg PO QPM RF: 0 multivitamin Tablet 1 tab PO DAILY RF: 0 carisoprodol [Soma] 350 mg Tablet 350 mg PO Q4-6H PRN (Reason: pain) RF: 0 cyanocobalamin (vitamin B-12) [Vitamin B-12] 2,500 mcg Tablet, Sublingual 2,500 mcg PO DAILY RF: 0 hydrocodone-acetaminophen 5-325 mg Tablet 1 tab PO Q4-6H PRN (Reason: pain) RF: 0 meloxicam [Mobic] 15 mg Tablet 15 mg PO DAILY RF: 0 meclizine 25 mg Tablet 25 mg PO PRN PRN (Reason: Dizziness) RF: 0 cholecalciferol (vitamin D3) [Vitamin D3] 2,000 unit Capsule 2,000 unit PO DAILY RF: 0 Calcium Magnesium 1 tab PO DAILY RF: 0 Referrals: [facility] [Outside] Jared Murphy MD [Physician] - Patel Power MD [Primary Care Provider] -
[2018-12-06 12:37] LABS: Add Manual Diff / Slide Review NO; Basophils Absolute Auto 100 /uL (0-100); Basophils Percent Auto 0.4 % (0-2); Eosinophils Absolute Auto 100 /uL (0-450); Eosinophils Percent Auto 0.5 % (2-4); Hematocrit 35.3 % (36-46); Hemoglobin 11.6 g/dL (12.0-16.0); INR 1.2 (0.9-1.3); Lymphocytes Absolute Auto 1600 /uL (1100-4500); Lymphocytes Percent Auto 9.4 % (25-40); Mean Corpuscular Hemoglobin 27.8 PG (26-34); Mean Corpuscular Volume 84.1 fL (80-100); Monocytes Absolute Auto 1100 /uL (0-900); Monocytes Percent Auto 6.6 % (3-14); Neutrophils Absolute Auto 14000 /uL (1500-7000); Neutrophils Percent Auto 83.1 % (50-75); Platelet Count 507 X10^3/uL (150-400); Prothrombin Time 14.3 SECONDS (10.1-12.7); Red Blood Cell Count 4.19 X10^6/uL (4.0-5.2); Red Cell Distribution Width 13.7 % (11.6-14.8); White Blood Cell Count 16.9 X10^3/uL (4.5-11.0)
[2018-12-06 12:40] LABS: PTT Partial Thromboplastin Tim 40 SECONDS (26.4-36.2)
[2018-12-06 12:44] LABS: Alanine Aminotransferase 109 IU/L (9-52); Albumin 3.7 g/dL (3.5-5.0); Alkaline Phosphatase 115 U/L (38-126); Aspartate Aminotransferase 56 IU/L (14-36); BUN Creatinine Ratio 18.6 (6-22); Bilirubin Total 0.4 mg/dL (0.2-1.3); Blood Urea Nitrogen 13 mg/dL (7-17); Carbon Dioxide 26 mmol/L (22-32); Chloride 101 mmol/L (98-107); Estimated Glomerular Filt Rate > 60.0 mL/min (>60); Globulin 3.6 g/dL (1.7-4.1); Glucose 191 mg/dL (80-110); HEMOLYSIS < 15 (0-50); Lactate (Lactic Acid) 1.6 mmol/L (0.7-2.1); Potassium 3.9 mmol/L (3.4-5.1); Sodium 136 mmol/L (137-145); Total Protein 7.3 g/dL (6.3-8.2)
[2018-12-06] MEDS: SODIUM CHLORIDE 0.9% 825 ML IV (12:44)
[2018-12-06] MEDS: ACETAMINOPHEN 325 MG TABLET 975 MG PO (12:44)
[2018-12-06] MEDS: KETOROLAC 60 MG/2 ML VIAL 30 MG IV (12:44)
[2018-12-06 12:48] LABS: Erythrocyte Sedimentation Rate 110 MM/HR (0-20)
[2018-12-06 12:51] LABS: Influenza A and B by PCR Rapid Negative (Negative)
--- NOTE | 2018-12-06 12:51 | PC.NURSE ---
Pt arrived POV with , AAOx3. Ambulatory with pain. reports 1 week of B/L wrist, B/L ankle swelling and intense L knee pain. 1+ UE edema, 2+ LE edema. Reports flu like sx last week. febrile 101.0 with TMAX 101.4 controlled with tylenol/ibu. Anxious. tearful. Only PMH L sided Breast CA in 2001. Lungs clear, denies cough. Denies dysuria. UA obtained and sent. IV placed and labs drawn and sent including lactate and BC x2. Receiving IVF bolus per septic protocol. medicated for pain with torodol and tylenol.
[2018-12-06 13:06] LABS: Procalcitonin 0.11 ng/mL (<0.5)
[2018-12-06 13:18] LABS: Bacteria Urine Moderate (10-30); Culture Indicated Urine Specimen Cultured; Mucus Urine 2+ (Negative); RBC Urine 0-1/HPF (0-5/HPF); Squamous Epithelial Cell Urine 0-1 /HPF (0-5/HPF); WBC Urine 30-100/HPF (0-5/HPF)
--- NOTE | 2018-12-06 13:31 | PC.NURSE ---
IVF infusing. Flu neg. repeat temp 99.7 oral. reports pain decreased since meds. NAD. at side.
[2018-12-06 14:44] LABS: C-Reactive Protein Quant 7.5 mg/dL (<1.0)
--- NOTE | 2018-12-06 15:28 | PC.NURSE ---
Pt reports improvement in swelling and pain in extremities. 1000cc bolus completed. afebrile. HR 85. NAD. sent home with referral to Rheum and number given.
[2018-12-08 16:46] LABS: Hepatitis A Antibody IgM NONREACTIVE; Hepatitis Acute Panel Interp 0.01; Hepatitis B Core Antibody IgM NONREACTIVE; Hepatitis B Surface Antigen NONREACTIVE; Hepatitis C Antibody NONREACTIVE
== END 2018-12-06 15:30 | disposition home or self-care (01) ==
PROVIDERS: Emergency Provider Nurse Practitioner Family; PCP Family Medicine
DX: M25.531 Pain in right wrist (principal); R50.9 Fever, unspecified
CPT/HCPCS: 36415; 71045; 80053; 80074; 81003; 81015; 83605; 84145; 85025; 85610; 85651; 85730; 86140; 87040; 87077; 87086; 87186; 87400; 87502; 96361; 96374; 99284; J1885

== ENCOUNTER 2019-02-27 09:14 | Day surgery (SDC) | payer MEDICARE, BC, SELFPAY ==
[2019-02-27] VITALS (11 sets, daily range): BP systolic 106–154; BP diastolic 50–84; PULSE 72–87; RESP 12–18; TEMP 36.1–37.1; O2SAT 91–98; BMI 28.4
[2019-02-27] MEDS: SODIUM CHLORIDE 0.9% 1,000 ML 200 ML IV (10:02)
--- NOTE | 2019-02-27 10:22 | SUR.PREOP ---
Patient ambulating to bathroom without difficulty.
--- NOTE | 2019-02-27 10:53 | PM.HP.1 ---
History of Present Illness History of Present Illness Date Patient Seen: 02/27/19 Time Patient Seen: 10:54 Chief complaint: [id number] Narrative: The patient is a woman who's here for screening colonoscopy. No family history of colon cancer. She has no blood per rectum. Her last colonoscopy was a long time ago certainly over 10 years ago she says. Patient History Medical History History of breast cancer (Acute) Surgical History Status post appendectomy Status post bilateral salpingo-oophorectomy (BSO) Status post hysterectomy Status post knee surgery Status post knee surgery Status post tubal ligation Family & Social History Social History: household members spouse Tobacco & Substance use: Smoking Status Never smoker alcohol intake frequency 0-2 drinks per day Substance Use Type does not use Meds Home Medications and Allergies Home Medications Medication Instructions Recorded Confirmed Type olmesartan [Benicar] 20 mg PO QPM #0 04/16/16 02/27/19 History Calcium Magnesium 1 tab PO DAILY 12/06/18 12/06/18 History amlodipine 5 mg PO QPM 12/06/18 02/27/19 History carisoprodol [Soma] 350 mg PO Q4-6H PRN 12/06/18 02/27/19 History hydrocodone-acetaminophen 1 tab PO Q4-6H PRN 12/06/18 02/27/19 History meclizine 25 mg PO PRN PRN 12/06/18 02/27/19 History Allergies Allergy/AdvReac Type Severity Reaction Status Date / Time morphine [MORPHINE] Allergy Unknown ITCHING Verified 02/27/19 09:45 Review of Systems Review of Systems ROS Unobtainable: All systems reviewed & are unremarkable except as noted in HPI and below Cardiovascular Comments: Patient has hypertension and is on medication for same Exam Vital Signs (past 8 hours): - 02/27/19 09:55 Temperature 98.4 F Pulse Rate 87 Respiratory Rate 16 Blood Pressure 154/84 H Pulse Oximetry 98 Oxygen Delivery Method Room Air Narrative Exam Narrative: Pleasant cooperative patient no apparent distress. Lungs are clear to auscultation. No rales or rhonchi. Heart regular rate and rhythm no murmur gallop. Abdomen is soft nontender without mass. No obvious hernias. Patient is alert and oriented x3. Assessment & Plan Assessment & Plan narrative: The patient for a screening colonoscopy. I have discussed the procedure with them. Risks of bleeding, perforation which would necessitate major operation, failure to find remove all lesions, the potential tattoo were all discussed. All questions were answered. They wished to proceed.
[2019-02-27] MEDS: fentaNYL 250 MCG/5 ML INJ IV (10:59)
--- NOTE | 2019-02-27 10:59 | PM.PREOP ---
Pre-operative Note Interval Note History & Physical reviewed/Exam performed by Physician: Yes Changes to H&P: No ASA Class (for procedural sedation): II
[2019-02-27] MEDS: MIDAZOLAM 5 MG/5 ML VIAL IV (11:00)
--- NOTE | 2019-02-27 11:23 | PM.OP.ENDO ---
Operative Date/Time/Diagnoses Date of procedure: 02/27/19 Time of procedure: 11:23 Pre-op diagnosis: Screening exam. Last exam over 10 years ago Post-op diagnosis: same (Diverticulosis sigmoid colon) Procedure & Clinicians Study performed: Colonoscopy Same procedure as scheduled: Yes Indications: Screening Surgeon: Vince Verdugo Procedure Notes SCOAP/Timeout: Performed Procedure in detail: The patient was placed in the left lateral decubitus position and underwent IV sedation directed by the surgeon consisting of fentanyl and Versed. Digital exam was unremarkable except for some tags at the anal verge. The scope was inserted and advanced through the rectum into the sigmoid, descending, transverse, and ascending colon. The sigmoid was quite tortuous and there were some diverticulosis noted.. The cecum was reached identified by the ileocecal valve . The scope was gradually brought out. No Polyps were found. The scope ultimately was retroflexed in the rectum. The appearance was normal. The scope was removed and the patient tolerated the procedure well. The prep was good Scope withdrawal time: 5-1/2 minutes Sedation minutes: 23 Findings: diverticulosis Specimen(s): none sent Complications: none Post-procedure Recommendations: Colonscopy in 10 years Follow up: as needed Disposition: PACU
[2019-02-27] MEDS: ONDANSETRON 4 MG/2 ML INJ IV (11:25)
--- NOTE | 2019-02-27 11:40 | SUR.PHASEI ---
Patient had small amount of epistaxis. Per AIDE Meeks< nasal trumpet inserted during procedure for oxygenation. Patient somnolent and snoring at this time.
--- NOTE | 2019-02-27 11:51 | SUR.PHASEI ---
Patient currently requiring 3L o2 to maintain sats > 91%.
--- NOTE | 2019-02-27 12:10 | SUR.PHASEII ---
VSS, OK to transition to phase 11.
== END 2019-02-27 12:37 | disposition home or self-care (01) ==
PROVIDERS: PCP Family Medicine; Visit Provider Specialist
PROC: 0DJD8ZZ Inspection of Lower Intestinal Tract, Via Natural or Artificial Opening Endoscopic (ICD-10-PCS; CPT 45378; principal; 2019-02-27 10:45)
DX: Z12.11 Encounter for screening for malignant neoplasm of colon (principal); K57.30 Diverticulosis of large intestine without perforation or abscess without bleeding
CPT/HCPCS: G0121; 99152; J2250; J2405; J3010

== ENCOUNTER → 2019-11-02 15:48 | Outpatient (CLI) | payer MEDICARE, BC, SELFPAY ==
--- NOTE | 2019-11-02 15:58 | DI.MG.S_ITS ---
Patient Name: TYREL BRAGG date: 1950 Sex: F Attending Physician: GAGE Indications: Date: 11/02/2019 15:52 At the request of: MUKESH ALMONTE Procedure: MM screening mammo BI BILATERAL DIGITAL SCREENING MAMMOGRAM 3D/2D WITH CAD: 11/02/2019 CLINICAL: Routine screening. Personal history of left breast cancer. Family history of breast cancer. Comparison is made to exams dated: 05/25/2018 mammogram, 07/04/2017 mammogram, and 12/16/2016 mammogram - [facility]. There are scattered fibroglandular elements in both breasts. Current study was also evaluated with a Computer Aided Detection (CAD) system. There are benign calcifications in the left breast. There also are benign post operative findings in both breasts. No significant masses, calcifications, or other findings are seen in either breast. There has been no significant interval change. IMPRESSION: BENIGN There is no mammographic evidence of malignancy. A 1 year screening mammogram is recommended. This exam was interpreted at Station ID: [id number]. NOTE: For mammograms, a report in lay terms will be sent to the patient. Approximately 15% of breast malignancies will not be visualized mammographically. In the management of a palpable breast mass, a negative mammogram must not discourage biopsy of a clinically suspicious lesion. Electronically Signed By: Roberth ibrahim/heaven:11/02/2019 16:53:39 letter sent: Normal Exam ACR BI-RADS Category 2: Benign Finding(s) [id number]
== END ==
PROVIDERS: PCP Family Medicine; Referring Provider Family Medicine; Visit Provider Family Medicine
DX: Z12.31 Encounter for screening mammogram for malignant neoplasm of breast (principal); Z85.3 Personal history of malignant neoplasm of breast; Z80.3 Family history of malignant neoplasm of breast
CPT/HCPCS: 77063; 77067

== ENCOUNTER → 2020-04-29 17:02 | Outpatient (CLI) | payer MEDICARE, BC, SELFPAY ==
--- NOTE | 2020-04-29 17:07 | DI.MRI.S_ITS ---
PROCEDURE: MR ANKLE LT WO CON INDICATIONS: Sprain of unspecified site of left knee and ankle TECHNIQUE: Noncontrast sagittal T1 spin echo and T2 fast spin echo with fat saturation, axial proton density fast spin echo and T2 fast spin echo with fat saturation, coronal T1 spin echo and T2 fast spin echo with fat saturation through the ankle/hindfoot. COMPARISON: None. FINDINGS: Image quality: Excellent. Bones and joints: No bone marrow contusions or fractures. Scattered degenerative subchondral sclerosis and spurring. No hindfoot coalitions. No osteochondral injuries of the talar dome. Trace subtalar joint effusion. Medial structures: Posterior tibialis intact. There is posterior tibialis tenosynovitis. Flexor digitorum longus intact. Flexor hallucis longus tendon intact. The posterior tibial neurovascular bundle appears normal within the tarsal tunnel, without extrinsic mass effect. Deltoid ligament complex appears intact. The spring ligament appears intact. Lateral structures: Anterior talofibular ligament not well seen and may be thickened, suggestive of chronic sprain. Calcaneofibular ligament intact. Posterior talofibular ligament intact. Anterior and posterior tibiofibular ligaments appear intact, as is the intermalleolar ligament. Tibiofibular syndesmosis is normal in width at 2 mm or less. Peroneus longus and brevis tendons appear normal. Bony peroneal tubercle and retrotrochlear prominence are normal in size. Sinus tarsi demonstrates normal fatty signal, without edema, fibrosis, or cyst formation. Anterior structures: Tibialis anterior intact. Extensor hallucis longus intact. Extensor digitorum longus tendon intact. Dorsal talonavicular ligament appears intact. Posterior and plantar structures: Distal Achilles tendinopathy and thickening with intrasubstance T2 hyperintensity. There is also adjacent retrocalcaneal bursal fluid and superficial edema. Medial band plantar fasciitis. Atrophy of the abductor hallucis and abductor digiti minimi muscles. IMPRESSION: Chronic appearing sprain of the anterior talofibular ligament. Posterior tibialis tenosynovitis Distal Achilles tendinopathy with adjacent fluid and edema Medial band plantar fasciitis Scattered degenerative changes as above Dictated by: Kuldip Blanchard M.D. on 04/30/2020 at 8:48 Approved by: Kuldip Blanchard M.D. on 04/30/2020 at 9:00
--- NOTE | 2020-04-29 17:07 | DI.MRI.S_ITS ---
PROCEDURE: MR LOWER LEG LT WO CON COMPARISON: None. INDICATIONS: Sprain of unspecified site of left knee and ankle FINDINGS: There is marked diffuse edema involving the medial gastrocnemius muscle, with adjacent superficial and interfascial fluid. A heterogeneous fluid collection probably intramuscular within the medial gastrocnemius, measures 4.1 x 1.7 cm, and 6.3 cm in the cephalocaudal dimension, likely reflecting hematoma. The popliteal neurovascular bundle appears grossly unremarkable. There is also mild edema involving the peroneal muscles and overlying superficial fascial edema and fluid. IMPRESSION: Extensive edema and adjacent fluid surrounding the medial gastrocnemius muscle in keeping with acute strain/partial tear with associated presumed intramuscular hematoma as measured above. Recommend clinical follow-up to document resolution and exclude underlying mass. Possible mild strain of the peroneal muscles, with adjacent edema. Dictated by: Kuldip Blanchard M.D. on 04/30/2020 at 8:24 Approved by: Kuldip Blanchard M.D. on 04/30/2020 at 8:38 com
--- NOTE | 2020-04-29 17:07 | DI.MRI.S_ITS ---
PROCEDURE: MR KNEE LT WO CON INDICATIONS: Sprain of unspecified site of left knee and ankle TECHNIQUE: Noncontrast sagittal PD fast spin echo and T2 fast spin echo with fat saturation, sagittal 3-D FLASH with fat saturation; coronal T1 spin echo and PD fast spin echo with fat saturation, and axial PD fast spin echo with fat saturation through the knee. COMPARISON: None. FINDINGS: Image quality: Excellent. Menisci: Medial meniscal tear involving the body and posterior horn. There is partial extrusion and abnormal signal which extends to the undersurface of the body and marked truncation of the free margin of the posterior horn. There is also mild enlargement. Circumferential lateral meniscal tear involving the anterior horn, body and posterior horn, with abnormal signal extending to the undersurface. Cruciate ligaments: Anterior cruciate ligament appears intact. Posterior cruciate ligament appears intact. Medial structures: There is medial bowing of the medial collateral ligament, with mild internal signal changes and no complete rupture. There is adjacent soft tissue edema. The appearance could reflect reactive changes to medial compartment pathology, versus low-grade sprain of the MCL. Pes anserinus tendons appear grossly unremarkable. Mild insertional semimembranosus tendinopathy. Lateral structures: The lateral collateral ligament demonstrates thickening and intrasubstance signal change in keeping with low grade sprain, statistically chronic, although technically age indeterminate. Biceps femoris tendon appears intact. Popliteus tendon grossly unremarkable. Iliotibial band appears intact. Anterior structures: Quadriceps tendon intact. Medial and lateral patellofemoral ligaments intact. There is mild patellar tendinopathy. Prepatellar and superficial infrapatellar subcutaneous edema/fluid. Bones and cartilage: No focal marrow contusion or discrete low signal fracture line. Degenerative bulky osteophyte formation, subchondral sclerosis and spurring. There is ill-defined muscle edema involving the medial gastrocnemius, with adjacent superficial fascial fluid Within the medial compartment, high-grade partial-thickness loss of the central weight-bearing femoral and tibial articular cartilage. Mild subchondral marrow edema involving the peripheral medial plateau. Within the lateral compartment, diffuse mild partial thickness loss of the femoral and tibial cartilage. Within the patellofemoral compartment, diffuse partial-thickness loss of the patellar and femoral trochlear cartilage. Joint space: Small joint effusion. Small Davey's cyst measuring 4 cm in the cephalocaudal dimension No specific evidence of intra-articular loose body. IMPRESSION: Edema and adjacent superficial fascial fluid compatible with medial gastrocnemius acute strain/partial tear. Circumferential lateral meniscal tear. Medial meniscal tear involving the body and posterior horn with partial extrusion. Adjacent MCL changes as above Patellar tendinopathy with adjacent fluid and edema Degenerative joint disease most advanced at the medial compartment as detailed above. Small joint effusion Small Davey's cyst Dictated by: Kuldip Blanchard M.D. on 04/30/2020 at 8:12 Approved by: Kuldip Blanchard M.D. on 04/30/2020 at 8:24
== END ==
PROVIDERS: PCP Family Medicine; Referring Provider Internal Medicine; Visit Provider Internal Medicine
DX: S93.402A Sprain of unspecified ligament of left ankle, initial encounter (principal); S83.282A Other tear of lateral meniscus, current injury, left knee, initial encounter; S83.242A Other tear of medial meniscus, current injury, left knee, initial encounter; M17.12 Unilateral primary osteoarthritis, left knee; M25.462 Effusion, left knee; M71.22 Synovial cyst of popliteal space [Baker], left knee; M65.872 Other synovitis and tenosynovitis, left ankle and foot; M72.2 Plantar fascial fibromatosis
CPT/HCPCS: 73718; 73721

== ENCOUNTER → 2021-05-07 14:22 | Outpatient (CLI) | payer MEDICARE, BC, SELFPAY ==
--- NOTE | 2021-05-07 | DI.MG.S_ITS ---
BILATERAL DIGITAL SCREENING MAMMOGRAM 3D/2D WITH CAD: 05/07/2021 CLINICAL: Routine screening. Personal history of left breast cancer. Family history of breast cancer. Comparison is made to exams dated: 11/02/2019 mammogram, 05/25/2018 mammogram, 07/04/2017 mammogram, and 12/14/2016 mammogram - [facility]. There are scattered fibroglandular elements in both breasts. Current study was also evaluated with a Computer Aided Detection (CAD) system. There are benign calcifications in the left breast. There also are benign post operative findings in both breasts. No significant masses, calcifications, or other findings are seen in either breast. There has been no significant interval change. IMPRESSION: BENIGN There is no mammographic evidence of malignancy. A 1 year screening mammogram is recommended. This exam was interpreted at Station ID: [id number]. NOTE: For mammograms, a report in lay terms will be sent to the patient. Approximately 15% of breast malignancies will not be visualized mammographically. In the management of a palpable breast mass, a negative mammogram must not discourage biopsy of a clinically suspicious lesion. Electronically Signed By: Roberth ibrahim/heaven:05/07/2021 15:56:34 letter sent: Normal Exam ACR BI-RADS Category 2: Benign Finding(s) [id number]
== END ==
PROVIDERS: PCP Family Medicine; Referring Provider Family Medicine; Visit Provider Family Medicine
DX: Z12.31 Encounter for screening mammogram for malignant neoplasm of breast (principal)
CPT/HCPCS: 77063; 77067

== ENCOUNTER → 2021-12-08 | Outpatient (CLI) | payer MEDICARE, BC, SELFPAY ==
--- NOTE | 2021-12-08 14:57 | DI.RAD.S_ITS ---
PROCEDURE: XR CHEST 2V INDICATIONS: COUGH TECHNIQUE: 2 views of the chest were acquired. COMPARISON: [facility], CR, XR CHEST 1V, 12/06/2018, 12:08. FINDINGS: Surgical changes and devices: None. Lungs and pleura: Lungs are clear. No pleural effusions or pneumothorax. Mediastinum: Mediastinal contours are normal. Heart size is normal. Bones and chest wall: No suspicious bony abnormalities. Soft tissues appear unremarkable. IMPRESSION: No acute cardiopulmonary disease. Dictated by: Pio QUEVEDO Interpreted: Ignacio Painter MD on 12/08/2021 at 15:20 Transcribed by: RIVERA on 12/08/2021 at 15:21 Approved by: Ignacio Painter M.D. on 12/15/2021 at 16:15
== END ==
PROVIDERS: PCP Family Medicine; Referring Provider Family Medicine; Visit Provider Family Medicine
DX: R05.9 Cough, unspecified (principal)
CPT/HCPCS: 71046

== ENCOUNTER → 2022-06-28 12:12 | Outpatient (CLI) | payer MEDICARE, BC, SELFPAY ==
--- NOTE | 2022-06-28 12:19 | DI.RAD.S_ITS ---
PROCEDURE: XR LUMBAR SPINE 2-3V INDICATIONS: LOWER BACK PAIN TECHNIQUE: Three views of the lumbar spine were acquired. COMPARISON: None. FINDINGS: Bones: Five axl-puf-xpvmcey vertebrae are present. Grade 1 anterolisthesis L4 on five. Trace retrolisthesis L2-3. Moderate disc height loss L5-S1. No vertebral body compression fractures. Mild endplate sclerosis at L2, L4, L5. No suspicious bony lesions. Soft tissues: Overlying bowel gas pattern is normal. No suspicious soft tissue calcifications. Surgical clips in the right abdomen and left pelvis. IMPRESSION: 1. Spondylolisthesis, most prominent at L4-5 where the extent is merely mild. 2. Multilevel disc and endplate change. Dictated by: Mary Zavaleta M.D. on 06/28/2022 at 17:39 Approved by: Mary Zavaleta M.D. on 06/28/2022 at 17:40
--- NOTE | 2022-06-28 12:19 | DI.RAD.S_ITS ---
PROCEDURE: XR HIP W PEL IF DONE RT 2V INDICATIONS: LOWER BACK PAIN TECHNIQUE: AP pelvis with lateral view(s) of the right hip(s). COMPARISON: CT, KIDNEY/ URETER/BLADDER, 07/09/2015, 10:35. FINDINGS: Bones: No fractures or dislocations. Mildly asymmetric hip joint degeneration with joint space loss bilaterally, right greater than left. Pelvic ring appears intact. Small sclerotic foci in the right superior acetabulum, left ilium, and left femoral head. Soft tissues: The visualized bowel gas pattern is normal. No suspicious soft tissue calcifications. Surgical clips are present in the left pelvis. IMPRESSION: 1. Slightly asymmetric right hip joint degeneration. 2. Probable scattered bone islands. Dictated by: Mary Zavaleta M.D. on 06/28/2022 at 17:36 Approved by: Mary Zavaleta M.D. on 06/28/2022 at 17:38
== END ==
PROVIDERS: PCP Family Medicine; Referring Provider Family Medicine; Visit Provider Family Medicine
DX: M16.11 Unilateral primary osteoarthritis, right hip (principal); M43.16 Spondylolisthesis, lumbar region; M54.50 Low back pain, unspecified
CPT/HCPCS: 72100; 73502

== ENCOUNTER → 2022-12-23 14:39 | Outpatient (CLI) | payer MEDICARE, BC, SELFPAY ==
--- NOTE | 2022-12-23 | DI.MG.S_ITS ---
BILATERAL DIGITAL SCREENING MAMMOGRAM 3D/2D WITH CAD POST LUMPECTOMY: 12/23/2022 CLINICAL: Routine screening. Personal history of left breast cancer.Family history of breast cancer. Comparison is made to exams dated: 05/07/2021 mammogram, 11/02/2019 mammogram, 05/25/2018 mammogram, and 12/14/2016 mammogram - [facility]. There are scattered areas of fibroglandular density in both breasts (category b / 25%-50% glandular tissue). Current study was also evaluated with a Computer Aided Detection (CAD) system. There are benign calcifications in the left breast. There also are benign post operative findings in both breasts. No significant masses, calcifications, or other findings are seen in either breast. There has been no significant interval change. IMPRESSION: BENIGN There is no mammographic evidence of malignancy. A 1 year screening mammogram is recommended. This exam was interpreted at Station ID: [id number]. NOTE: For mammograms, a report in lay terms will be sent to the patient. Approximately 15% of breast malignancies will not be visualized mammographically. In the management of a palpable breast mass, a negative mammogram must not discourage biopsy of a clinically suspicious lesion. Electronically Signed By: Emanuel tucker/heaven:12/23/2022 15:29:58 letter sent: Normal Exam ACR BI-RADS Category 2: Benign Finding(s) [id number]
== END ==
PROVIDERS: PCP Family Medicine; Referring Provider Family Medicine; Visit Provider Family Medicine
DX: Z12.31 Encounter for screening mammogram for malignant neoplasm of breast (principal); Z85.3 Personal history of malignant neoplasm of breast; Z80.3 Family history of malignant neoplasm of breast
CPT/HCPCS: 77063; 77067

== ENCOUNTER → 2023-04-12 12:10 | Outpatient (CLI) | payer MEDICARE, BC, SELFPAY ==
--- NOTE | 2023-04-12 | DI.RAD.S_ITS ---
PROCEDURE: XR CERVICAL SPINE 2V OR 3V INDICATIONS: INJURY TECHNIQUE: 3 view(s) of the cervical spine were acquired. COMPARISON: [facility], , CERVICAL SPINE 2 OR 3 VIEWS, 04/06/2016, 12:18. FINDINGS: Bones: No fractures or dislocations to the T1 level. The lateral masses of C1 appear intact on the odontoid view. No suspicious bony lesions. Multilevel degenerative disc disease, moderate at C6-C7, and mild at C4-C5 and C5-C6. Moderate to severe bilateral facet arthropathy, most pronounced at C5-C6 on the left. Compared to the last exam, there is progression of disc and facet joint degeneration. Soft tissues: No prevertebral soft tissue swelling. IMPRESSION: 1. No displaced fracture or traumatic subluxation. 2. Multilevel degenerative disc and facet disease. Dictated by: Elida Calderon M.D. on 04/13/2023 at 12:34 Approved by: Elida Calderon M.D. on 04/13/2023 at 12:37
--- NOTE | 2023-04-12 | DI.RAD.S_ITS ---
PROCEDURE: XR KNEE RT 3V INDICATIONS: INJURY TECHNIQUE: 3 views of the knee were acquired. COMPARISON: None. FINDINGS: Bones: No fractures or dislocations. No suspicious bony lesions. Tricompartmental arthritic changes. Soft tissues: Moderate joint effusion. No suspicious soft tissue calcifications. IMPRESSION: No visualized acute fracture or dislocation. However, if clinical concern and/or pain persist, short interval imaging followup in 7-10 days is recommended, as occult injury cannot be definitively excluded. Dictated by: Keri Cotton M.D. on 04/12/2023 at 16:24 Approved by: Keri Cotton M.D. on 04/12/2023 at 16:24
--- NOTE | 2023-04-12 | DI.RAD.S_ITS ---
PROCEDURE: XR KNEE LT 3V INDICATIONS: INJURY TECHNIQUE: 3 views of the knee were acquired. COMPARISON: None. FINDINGS: Bones: There is mildly displaced predominantly horizontal lucency at the anterior aspect of the tibial metaphysis. Soft tissues: Mild joint effusion. No suspicious soft tissue calcifications. IMPRESSION: Anterior tibial fracture as above. Dictated by: Keri Cotton M.D. on 04/12/2023 at 16:23 Approved by: Keri Cotton M.D. on 04/12/2023 at 16:23
== END ==
PROVIDERS: PCP Family Medicine; Referring Provider Family Medicine; Visit Provider Family Medicine
DX: S82.292A Other fracture of shaft of left tibia, initial encounter for closed fracture (principal); M47.812 Spondylosis without myelopathy or radiculopathy, cervical region; M50.321 Other cervical disc degeneration at C4-C5 level; M25.462 Effusion, left knee; M25.461 Effusion, right knee; M25.569 Pain in unspecified knee; X58.XXXA Exposure to other specified factors, initial encounter
CPT/HCPCS: 72040; 73562

== ENCOUNTER → 2023-05-07 13:30 | Outpatient (CLI) | payer MEDICARE, BC, SELFPAY ==
--- NOTE | 2023-05-07 | DI.MRI.S_ITS ---
PROCEDURE: MR KNEE LT WO CON INDICATIONS: BILATERAL KNEE PAIN TECHNIQUE: Noncontrast sagittal PD fast spin echo and T2 fast spin echo with fat saturation, sagittal 3-D FLASH with fat saturation; coronal T1 spin echo and PD fast spin echo with fat saturation, and axial PD fast spin echo with fat saturation through the knee. COMPARISON: [facility], CR, XR KNEE LT 3V, 04/12/2023, 12:32. [facility], MR, MR KNEE LT WO CON, 04/29/2020, 17:21. FINDINGS: Image quality: Excellent. Menisci: There is medial meniscal extrusion and complex tear of the body of the medial meniscus extending to both anterior and posterior horns. There is oblique tear of the anterior horn, body and posterior horn of the lateral meniscus meniscus involving the inferior articular surface. The meniscal root ligaments appear intact. Cruciate ligaments: The anterior and posterior cruciate ligaments appear intact. Medial structures: The medial collateral ligament appears intact. The semimembranosus tendon insertions and meniscocapsular junction appear intact. Visualized portions of the pes anserinus tendons appear normal. No abnormal bursal fluid. Lateral structures: The lateral collateral ligament, long and short heads of the biceps femoris tendon appear intact. The popliteus tendon appears normal. Iliotibial band appears normal. Anterior structures: The quadriceps and patellar tendons appear intact. There is [id number] patellar tendinitis. Mild quadriceps tendinosis is present. Patellar alignment is normal. No femoral trochlear dysplasia or ventral trochlear prominence. No edema in the infrapatellar fat pad. Bones and cartilage: There is nondisplaced tear of the proximal tibia involving the medial tibial plateau/tibial eminence, as well as the tibial tubercle. There is tricompartmental cartilage thinning and fibrillation, most pronounced in the medial femorotibial compartment. Joint space: There is small knee joint effusion. There is a small Davey's cyst. Normal appearing synovial plicae are incidentally noted. IMPRESSION: 1. Nondisplaced proximal tibial fracture involving the medial tibial plateau and the tibial tubercle. 2. Medial meniscal tear. 3. Lateral meniscal tear. 4. Moderate to severe patellar tendinitis. 5. 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 6. A small Davey's cyst. Dictated by: Elida Calderon M.D. on 05/09/2023 at 8:25 Approved by: Elida Calderon M.D. on 05/09/2023 at 11:18
--- NOTE | 2023-05-07 | DI.MRI.S_ITS ---
PROCEDURE: MR KNEE RT WO CON INDICATIONS: BILATERAL KNEE PAIN TECHNIQUE: Noncontrast sagittal PD fast spin echo and T2 fast spin echo with fat saturation, sagittal 3-D FLASH with fat saturation; coronal T1 spin echo and PD fast spin echo with fat saturation, and axial PD fast spin echo with fat saturation through the knee. COMPARISON: [facility], CR, XR KNEE RT 3V, 04/12/2023, 12:32. FINDINGS: Image quality: Excellent. Menisci: There is medial meniscal extrusion. There is complex tear involving the body and posterior horn of the medial meniscus. There is horizontal tear involving the posterior horn of the lateral meniscus. Cruciate ligaments: The anterior and posterior cruciate ligaments appear intact. There is mucoid degeneration of ACL. Medial structures: Suspect chronic low-grade (grade 1) medial collateral ligament sprain. The semimembranosus tendon insertions and meniscocapsular junction appear intact. Visualized portions of the pes anserinus tendons appear normal. No abnormal bursal fluid. Lateral structures: Suspect chronic low-grade partial tear of the lateral collateral ligament. The biceps femoris tendon appears intact. The popliteus tendon appears normal. Iliotibial band appears normal. Anterior structures: The quadriceps and patellar tendons appear intact. Mild lateral tilt of patella. There is thickening and hyperintense signal in the distal patellar tendon at the tibial tubercle insertion. Mild quadriceps tendinosis. No femoral trochlear dysplasia or ventral trochlear prominence. No edema in the infrapatellar fat pad. Bones and cartilage: There is nondisplaced fracture of tibial tubercle with mild marrow edema. There is tricompartmental cartilage thinning and fibrillation, most pronounced in the medial femorotibial compartment. Joint space: There is small knee joint effusion. There is a [id number] sized multilocular Davey's cyst. Normal appearing synovial plicae are incidentally noted. IMPRESSION: 1. Medial meniscal extrusion and complex tear involving the posterior horn body. 2. Horizontal tear of the posterior horn of the medial meniscus. 3. Mucoid degeneration of ACL. 4. Suspect chronic low-grade tear of the MCL and LCL. 5. Distal patellar tendinitis. 6. Suspect nondisplaced tibial tubercle fracture. 7. Tricompartmental cartilage loss and signal degeneration, most pronounced in the medial femorotibial compartment. 8. A [id number] sized Davey's cyst. Dictated by: Elida Calderon M.D. on 05/09/2023 at 8:26 Approved by: Elida Calderon M.D. on 05/09/2023 at 10:54
== END ==
LOC: MRI 13:31
PROVIDERS: PCP Family Medicine; Referring Provider Family Medicine; Visit Provider Family Medicine
DX: S83.231A Complex tear of medial meniscus, current injury, right knee, initial encounter (principal); S83.281A Other tear of lateral meniscus, current injury, right knee, initial encounter; S83.242A Other tear of medial meniscus, current injury, left knee, initial encounter; S83.282A Other tear of lateral meniscus, current injury, left knee, initial encounter; S82.145A Nondisplaced bicondylar fracture of left tibia, initial encounter for closed fracture; S82.155A Nondisplaced fracture of left tibial tuberosity, initial encounter for closed fracture; M76.51 Patellar tendinitis, right knee; M76.52 Patellar tendinitis, left knee; M17.12 Unilateral primary osteoarthritis, left knee; M25.561 Pain in right knee; M25.562 Pain in left knee
CPT/HCPCS: 73721

== ENCOUNTER → 2023-11-04 11:40 | Outpatient (CLI) | payer MEDICARE, BC, SELFPAY ==
--- NOTE | 2023-11-04 11:44 | DI.RAD.S_ITS ---
PROCEDURE: XR WRIST RT 2V INDICATIONS: ARTHRITIS TECHNIQUE: < 2 > views of the wrist were acquired. COMPARISON: None. FINDINGS: Bones: Tiny remote avulsion fracture of the cortex of the radial styloid process appreciated. No significant osseous abnormality. Joints: There is mild degeneration in the STT , 1st CMC and the 2nd and 3rd MCP joints. Soft tissues: Chondrocalcinosis present the TFCC IMPRESSION: Mild degeneration. Chondrocalcinosis of the TFCC Dictated by: Wilbur Pineda M.D. on 11/07/2023 at 6:31 Approved by: Wilbur Pineda M.D. on 11/07/2023 at 6:32
== END ==
PROVIDERS: PCP Family Medicine; Referring Provider Family Medicine; Visit Provider Family Medicine
DX: M18.11 Unilateral primary osteoarthritis of first carpometacarpal joint, right hand (principal); M19.041 Primary osteoarthritis, right hand; M11.241 Other chondrocalcinosis, right hand
CPT/HCPCS: 73100